=== PATIENT | female | born 1980 | race Caucasian/White ===

== ENCOUNTER → 2018-10-13 | Outpatient (CLI) | payer OTHER ==
[~2018-10-13] MED LIST: GADOBUTROL 7.5 MMOL/7.5 ML (GADAVIST) VIAL IV ONE
--- NOTE | 2018-10-13 12:01 | Diagnostic Imaging Report ---
PROCEDURE: MRI left upper extremity with and without contrast. TECHNIQUE: Multiplanar, multisequence pre- and [id number] MRI of the left upper extremity was accomplished. INDICATION: Thumb mass. COMPARISON: None available. FINDINGS: There is a lobulated soft tissue mass located along the dorsal aspect of the thumb at the level of the MCP joint. This measures approximately 3 cm in length, 2.2 cm in width, and has a maximal thickness of 1.3 cm. It causes chronic erosive changes involving the base of the thumb proximal phalanx, which nearly completely erode through this portion of the bone. On T1-weighted images, the mass is iso- to slightly hyper-intense to muscle, and on T2-weighted imaging, it has mild hyperintensity. It does demonstrate mild enhancement within portions of the mass. The flexor pollicis longus is draped over the mass but remains intact. Flexor pollicis longus is normal. IMPRESSION: 1. 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 These erosive changes result in near-complete destruction of the base of the thumb proximal phalanx. Dictated by: Dictated on workstation # [id number]
== END ==
LOC: RAD 08:30
PROVIDERS: ATTEND Emergency Medicine
DX: M85.88 Other specified disorders of bone density and structure, other site (principal); M79.89 Other specified soft tissue disorders; M89.8X8 Other specified disorders of bone, other site
CPT/HCPCS: 73220